=== PATIENT | male | born 1960 | race Two or more races ===

== ENCOUNTER → 2017-01-28 | Outpatient (CLI) | payer BC ==
[2017-01-28 13:44] LABS: ANION GAP 5 MEQ/L (8-16); BLOOD UREA NITROGEN 12 MG/DL (7-18); CALCIUM LEVEL 8.9 MG/DL (8.5-10.1); CARBON DIOXIDE LEVEL 29 MEQ/L (21-32); CHLORIDE LEVEL 108 MEQ/L (98-107); CREATININE FOR GFR 0.88 MG/DL (0.70-1.30); GLOMERULAR FILTRATION RATE > 60.0 (>56); GLUCOSE, FASTING 111 MG/DL (70-105); SODIUM LEVEL 142 MEQ/L (136-145)
== END ==
LOC: M SMT 10:08
PROVIDERS: ATTEND Nurse Practitioner Women's Health
DX: R31.29 Other microscopic hematuria (principal)

== ENCOUNTER → 2017-02-07 | Outpatient (CLI) | payer BC ==
[~2017-02-07] MED LIST: ISOVUE-370 76% 100ML VIAL (Q9967) As Ordered ONE
--- NOTE | 2017-02-07 17:21 | REP ---
CT urogram without and with IV contrast: History: Hematuria. Comparison CT study is from [facility] dated 03/13/2016. CT contrast dose: 100 m: of intravenous Isovue 370. CT findings: Preliminary digital lisw radiograph is unremarkable. The lung bases show minimal linear fibrosis in the right lower lobe. The liver and the spleen are normal in size and homogeneous in texture on pre and postcontrast imaging. There is a tiny accessory splenule inferiorly. No adrenal lesion is seen on either side. The gallbladder and the pancreas are unremarkable. There are scattered small bowel mesenteric lymph nodes in the right lower quadrant. Small and large intestinal bowel loops are unremarkable. Normal caliber aorta is seen. No retroperitoneal mass or adenopathy is seen. The kidneys enhance symmetrically and are morphologically intact. No hydronephrosis is seen. There is mild vascular calcification. No renal mass or cyst is seen. No filling defect is seen in the collecting system on either side. The ureters describe a normal course to the urinary bladder. No filling defect is seen in the bladder. The prostate is prominent in size. Seminal vesicles are unremarkable. There are 1-2 diverticulosis changes in the sigmoid colon. No bony destructive lesion is seen. Impression: Mildly enlarged prostate gland. The patient status post appendectomy. Mild vascular calcification. Left colonic diverticulosis. Otherwise negative. Signed by Roger He MD 02/07/2017 06:54 P
== END ==
LOC: M RAD 16:17
PROVIDERS: ATTEND Nurse Practitioner Women's Health
DX: R31.29 Other microscopic hematuria (principal)
CPT/HCPCS: 74178; Q9967

== ENCOUNTER 2017-10-08 19:55 | Emergency (ER) | payer BC | END 2017-10-08 20:47 | disposition home or self-care (01) | LOC: M ED 19:55 | DX: K11.1 Hypertrophy of salivary gland (principal); E78.00 Pure hypercholesterolemia, unspecified; F17.200 Nicotine dependence, unspecified, uncomplicated; Z79.899 Other long term (current) drug therapy | CPT/HCPCS: 99282 ==

== ENCOUNTER 2019-06-20 08:03 | Day surgery (SDC) | payer BC ==
[~2019-06-20] VITALS: Ht 182.9 cm; Wt 100.2 kg
[~2019-06-20 08:03] MED LIST changes: +ASPI81TA85 PO; +EZET10TA21 PO; -ISOVUE-370 76% 100ML VIAL (Q9967) As Ordered ONE; +NS 1,000 ML IV ONE; +SIMV20TA22 PO
--- NOTE | 2019-06-20 09:51 | ROOR ---
Patient Name: Andrei Sheriff Procedure Date: 06/20/2019 9:27 AM Date of : 1960 Age: 58 Room: [facility] Gender: Male Note Status: Finalized Procedure: Total Colonoscopy to Cecum Indications: High risk colon cancer surveillance: Personal history of colonic polyps, Last colonoscopy: 2015 Providers: Alen Garrido MD Referring MD: RYAN BOYD MD Requesting Provider: Medicines: Monitored Anesthesia Care Complications: No immediate complications. Procedure: Pre-Anesthesia Assessment: - The heart rate, respiratory rate, oxygen saturations, blood pressure, adequacy of pulmonary ventilation, and response to care were monitored throughout the procedure. The Colonoscope was introduced through the anus and advanced to the cecum, identified by appendiceal orifice and ileocecal valve. The colonoscopy was performed without difficulty. The patient tolerated the procedure well. The quality of the bowel preparation was excellent. Findings: The perianal and digital rectal examinations were normal. No other significant abnormalities were identified in a careful examination of the remainder of the colon. The exam was otherwise without abnormality on direct and retroflexion views. Impression: - The examination was otherwise normal on direct and retroflexion views. - No specimens collected. - The exam was otherwise normal to the cecum. Recommendation: - Patient has a contact number available for emergencies. The signs and symptoms of potential delayed complications were discussed with the patient. Return to normal activities tomorrow. Written discharge instructions were provided to the patient. - High fiber diet. - Discharge patient to home. - Continue present medications. - Repeat colonoscopy in 5 years for surveillance. - Return to referring physician. - The findings and recommendations were discussed with the patient's family. Alen Garrido MD Alen Garrido MD 06/20/2019 9:51:03 AM Electronically signed by Alen Garrido MD Number of Addenda: 0 Note Initiated On: 06/20/2019 9:27 AM Estimated Blood Loss: Estimated blood loss: none.
[2019-06-20 10:12] VITALS: BP 138/91
== END 2019-06-20 10:28 | disposition home or self-care (01) ==
LOC: M OPP 08:03
PROVIDERS: ATTEND Internal Medicine Gastroenterology
DX: Z12.11 Encounter for screening for malignant neoplasm of colon (principal); Z86.010 Personal history of colon polyps; Z79.82 Long term (current) use of aspirin; Z79.899 Other long term (current) drug therapy; F17.210 Nicotine dependence, cigarettes, uncomplicated

== ENCOUNTER → 2020-07-31 | Outpatient (REF) | payer BC ==
[~2020-07-31] MED LIST changes: -ASPI81TA85 PO; +ASPI81TA86 PO; -NS 1,000 ML IV ONE
[2020-07-31 13:10] LABS: APPEARANCE, URINE CLEAR (CLEAR); BACTERIA, URINE AUTO NEGATIVE (NEGATIVE); BILIRUBIN, URINE AUTO NEGATIVE (NEGATIVE); BLOOD, URINE BLOOD NEGATIVE (NEGATIVE); CALCIUM OXALATE CRYSTALS SMALL; COLOR, URINE YELLOW (YELLOW); GLUCOSE, URINE (UA) AUTO NEGATIVE (NEGATIVE); KETONE, URINE AUTO TRACE mg/dL (NEGATIVE); LEUKOCYTE ESTERASE, URINE AUTO NEGATIVE (NEGATIVE); MUCUS, URINE SMALL (NEGATIVE); NITRITE, URINE AUTO NEGATIVE (NEGATIVE); PROTEIN, URINE AUTO NEGATIVE (NEGATIVE); RBC, URINE AUTO 3 /HPF (0-3); SPECIFIC GRAVITY URINE AUTO 1.028 (1.002-1.035); SQUAMOUS EPITHELIAL CELL UR AU 0 /HPF (0-6); UROBILINOGEN, URINE AUTO 0.2 mg/dL (0.0-2.0); WBC, URINE AUTO 0 /HPF (0-3)
== END ==
LOC: M SMT 12:50
PROVIDERS: ATTEND Nurse Practitioner Women's Health
DX: R10.30 Lower abdominal pain, unspecified (principal)

== ENCOUNTER → 2022-09-07 | Outpatient (REF) | payer BC | LOC: M SFHCDERM 17:49 | PROVIDERS: ATTEND Nurse Practitioner Family | DX: D22.5 Melanocytic nevi of trunk (principal); L82.1 Other seborrheic keratosis ==

== ENCOUNTER → 2024-04-30 | Outpatient (REF) | payer BC ==
[2024-04-30 18:54] LABS: AMORPHOUS SEDIMENT SMALL (NEGATIVE); APPEARANCE, URINE CLEAR (CLEAR); BACTERIA, URINE AUTO NEGATIVE (NEGATIVE); BILIRUBIN, URINE AUTO NEGATIVE (NEGATIVE); BLOOD, URINE BLOOD NEGATIVE (NEGATIVE); COLOR, URINE YELLOW (YELLOW); GLUCOSE, URINE (UA) AUTO NEGATIVE (NEGATIVE); KETONE, URINE AUTO NEGATIVE (NEGATIVE); LEUKOCYTE ESTERASE, URINE AUTO NEGATIVE (NEGATIVE); NITRITE, URINE AUTO NEGATIVE (NEGATIVE); PROTEIN, URINE AUTO NEGATIVE (NEGATIVE); RBC, URINE AUTO 0 /HPF (0-3); SQUAMOUS EPITHELIAL CELL UR AU 0 /HPF (0-6); UROBILINOGEN, URINE AUTO 0.2 mg/dL (0.0-2.0); WBC, URINE AUTO 0 /HPF (0-3)
== END ==
LOC: M SMT 17:07
PROVIDERS: ATTEND Physician Assistant
DX: R31.29 Other microscopic hematuria (principal); R82.89 Other abnormal findings on cytological and histological examination of urine

== ENCOUNTER 2024-07-16 08:31 | Day surgery (SDC) | payer BC ==
[~2024-07-16] VITALS: Ht 182.9 cm; Wt 92.2 kg
[~2024-07-16 08:31] MED LIST changes: +METF500T13 PO; +TAMS-18 PO; +THERTAB52 PO
[2024-07-16] MEDS ORDERED: LIDOCAINE 2% 100MG/5ML SDV (FOR ANES.) As Ordered ONE (09:48)
[2024-07-16] MEDS ORDERED: propofoL 500 MG/50 ML VIAL As Ordered ONE (09:48)
[2024-07-16 10:13] VITALS: TEMP 97.3
[2024-07-16 10:40] VITALS: BP 121/69; O2SAT 98
== END 2024-07-16 10:45 | disposition home or self-care (01) ==
LOC: M SDC 08:31
PROVIDERS: ATTEND Internal Medicine Gastroenterology
DX: K64.0 First degree hemorrhoids (principal); Z86.0101 Personal history of adenomatous and serrated colon polyps; D12.6 Benign neoplasm of colon, unspecified; E11.9 Type 2 diabetes mellitus without complications; E78.5 Hyperlipidemia, unspecified; K57.92 Diverticulitis of intestine, part unspecified, without perforation or abscess without bleeding; K21.9 Gastro-esophageal reflux disease without esophagitis; N40.0 Benign prostatic hyperplasia without lower urinary tract symptoms; Z79.84 Long term (current) use of oral hypoglycemic drugs; F17.210 Nicotine dependence, cigarettes, uncomplicated